=== PATIENT | male | born 1990 | race Caucasian/White ===

== ENCOUNTER 2024-02-12 20:07 | Emergency (ER) | payer OTHER, SELFPAY ==
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
[2024-02-12 20:20] VITALS: BP 138/94; PULSE 103; RESP 18; TEMP 36.4; O2SAT 98
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
== END 2024-02-12 21:21 | disposition home or self-care (01) ==
LOC: ANHED 21:12
PROVIDERS: Emergency Provider Emergency Medicine
DX: S60.221A Contusion of right hand, initial encounter (principal); S80.02XA Contusion of left knee, initial encounter; V28.49XA Other motorcycle driver injured in noncollision transport accident in traffic accident, initial encounter
CPT/HCPCS: 73130; 73564; 99284